=== PATIENT | female | born 1990 | race Caucasian/White ===

== ENCOUNTER 2020-11-24 09:51 | Inpatient (IN) ==
[2020-11-24] MEDS ORDERED: DEXAMETHASONE 4 MG/1 ML VIAL ONE ×2 (12:27→12:28)
[2020-11-24] MEDS ORDERED: ONDANSETRON 4 MG/2 ML VIAL ONE (12:27)
[2020-11-24] MEDS ORDERED: BUPIVACAINE MPF 0.25% 30 ML VIAL ONE ×2 (12:27→12:28)
[2020-11-24] MEDS ORDERED: propofoL 200 MG/20 ML VIAL IV ONE (12:27)
[2020-11-24] MEDS ORDERED: SUCCINYLCHOLINE 200 MG/10 ML VIAL ONE (12:27)
[2020-11-24] MEDS ORDERED: LIDOCAINE 2% 5 ML VIAL ONE ×2 (12:27→12:47)
[2020-11-24] MEDS ORDERED: ACETAMINOPHEN INJ 1,000 MG/100 ML VIAL IV ONE (12:34)
[2020-11-24] MEDS ORDERED: KETOROLAC 30 MG/1 ML VIAL ONE (12:34)
[2020-11-24] MEDS ORDERED: SEVOFLURANE 1 UNIT/15 MINUTE INH ONE (12:34)
[2020-11-24] MEDS ORDERED: CITRIC ACID/SODIUM CITRATE 30 ML UDCUP PO ONE ×2 (12:59→13:30)
[2020-11-24] MEDS ORDERED: ceFAZolin 2,000 MG/50 ML DUPLEX IV ONE (12:59)
[2020-11-24] MEDS ORDERED: FAMOTIDINE 20 MG/2 ML VIAL IV ONE (12:59)
[2020-11-24] MEDS ORDERED: LACTATED RINGERS 1,000 ML IV SCH ×2 (13:00→16:30)
[2020-11-24] MEDS ORDERED: OXYTOCIN/LR 30 UNIT/1,000 ML BAG IV ONE (13:01)
[2020-11-24] MEDS ORDERED: OXYTOCIN 10 UNIT/ML VIAL IM ONE (13:01)
[2020-11-24 13:15] LABS: Basophils % 0.2 % (0.0-0.8); Eosinophils # 0.1 10*3/uL (0.0-0.87); Eosinophils % 1.3 % (0.00-10.9); Hematocrit 31.7 VOL% (35.7-47.0); Hemoglobin 10.1 GM/DL (12.0-16.0); Immature Granulocytes % 0.4 %; Immature Granulocytes Absolute 0.04 #; Lymphocytes # 2.2 10*3/uL (1.4-4.0); Lymphocytes % 23.8 % (21.3-54.2); Mean Corpuscular HGB Conc 31.9 GM/DL (32-36); Mean Corpuscular Volume 91.9 FL (87-102); Mean Platelet Volume 9.1 FL (9.6-12.0); Monocytes % 9.8 % (1.7-12.7); Neutrophils % 64.5 % (38.7-73.9); Platelet Count 271 T/CUMM (130-400); Red Blood Count 3.45 MC/CUMM (3.8-5.5); Red Cell Distribution Width 12.5 % (9.3-17.3); White Blood Count 9.1 T/CUMM (4-12)
[2020-11-24 13:34] LABS: Albumin 2.6 G/DL (3.4-5.0); Bilirubin,Total 0.4 MG/DL (0.20-1.00); Calcium 8.5 MG/DL (8.5-10.1); Potassium 3.8 MMOL/L (3.5-5.1); Total Protein 7.3 G/DL (6.4-8.2)
[2020-11-24] MEDS ORDERED: miSOPROStoL 200 MCG TABLET ONE (14:48)
[2020-11-24] MEDS ORDERED: CARBOPROST TROMETHAMINE 250 MCG/ML AMP IM ONE (14:49)
[2020-11-24] MEDS ORDERED: METHYLERGONOVINE 0.2 MG/1 ML AMP ONE (14:49)
[2020-11-24] MEDS ORDERED: MIDAZOLAM 2 MG/2 ML VIAL ONE (15:35)
[2020-11-24] MEDS ORDERED: fentaNYL 100 MCG/2 ML VIAL ONE (15:35)
[2020-11-24] MEDS ORDERED: ROCURONIUM 50 MG/5 ML VIAL IV ONE (15:49)
[2020-11-24] MEDS ORDERED: GLYCOPYRROLATE 0.4 MG/2 ML VIAL ONE (15:56)
[2020-11-24] MEDS ORDERED: NEOSTIGMINE 10 MG/10 ML VIAL ONE (15:56)
[2020-11-24] MEDS ORDERED: PHENYLEPHRINE 1 MG/10 ML SYRINGE IV ONE (15:59)
[2020-11-24 16:15] LABS: Cord Venous Blood HCO3 22.5 MMOL/L; Cord Venous Blood PCO2 41.1 MMHG; Cord Venous Blood PO2 36.1 MMHG
[2020-11-24] MEDS ORDERED: MAGNESIUM HYDROXIDE SUSP 30 ML UDCUP PO PRN (16:26)
[2020-11-24] MEDS ORDERED: SIMETHICONE CHEW 80 MG TABLET PO PRN (16:26)
[2020-11-24] MEDS ORDERED: IBUPROFEN 800 MG TABLET PO PRN (16:26)
[2020-11-24] MEDS ORDERED: OXYTOCIN/LR 20 UNIT/1,000 ML BAG IV ONE (16:26)
[2020-11-24] MEDS ORDERED: RHO(D) IMMUNE GLOBULIN 300 MCG SYRINGE IM ONE (16:26)
[2020-11-24] MEDS ORDERED: ONDANSETRON 4 MG/2 ML VIAL IV PRN (16:26)
[2020-11-24] MEDS ORDERED: ACETAMINOPHEN 325 MG TABLET PO PRN (16:26)
[2020-11-24] MEDS ORDERED: HYDROmorphone 2 MG/1 ML VIAL IV PRN (18:36)
[2020-11-24] MEDS ORDERED: OXYTOCIN/LR 20 UNIT/1,000 ML BAG IV PRN (18:59)
[2020-11-24] MEDS: DOCUSATE SODIUM 100 MG CAPSULE PO SCH (21:48)
[2020-11-24] MEDS ORDERED: ACETAMINOPHEN 500 MG TABLET PO SCH (22:00)
[2020-11-24] MEDS ORDERED: KETOROLAC 30 MG/1 ML VIAL IM SCH (22:00)
[2020-11-24 22:30] LABS: Bilirubin,Urine Negative (Negative); Blood, Urine Negative (Negative); Glucose,Urine (UA) Negative (Negative); Ketones,Urine 80 mg/dL (Negative); Mucus,Urine Moderate /LPF (Occasional); Nitrite,Urine Negative (Negative); Protein,Urine 30 MG/DL; RBC,Urine 16 /HPF (0-4); Squamous Epithelial Cell,Urine Occasional /HPF (0-10); Urine Appearance CLEAR (Clear); Urine Color Yellow (Yellow); Urine Specific Gravity 1.024 (1.001-1.035)
[2020-11-24] MEDS: KETOROLAC 30 MG/1 ML VIAL IV SCH (22:55)
[2020-11-25] MEDS ORDERED: ACETAMINOPHEN 500 MG TABLET PO PRN (01:00)
[2020-11-25] MEDS: KETOROLAC 30 MG/1 ML VIAL IV SCH ×2 (04:49→10:21)
[2020-11-25 06:04] LABS: Basophils % 0.1 % (0.0-0.8); Eosinophils % 0.1 % (0.00-10.9); Hematocrit 23.4 VOL% (35.7-47.0); Immature Granulocytes % 0.5 %; Immature Granulocytes Absolute 0.08 #; Lymphocytes # 2.6 10*3/uL (1.4-4.0); Lymphocytes % 16.8 % (21.3-54.2); Mean Corpuscular HGB Conc 33.3 GM/DL (32-36); Mean Corpuscular Volume 90.7 FL (87-102); Mean Platelet Volume 9.2 FL (9.6-12.0); Monocytes % 10.7 % (1.7-12.7); Neutrophils % 71.8 % (38.7-73.9); Platelet Count 253 T/CUMM (130-400); Red Cell Distribution Width 12.2 % (9.3-17.3)
[2020-11-25 06:13] LABS: Hemoglobin 7.8 GM/DL (12.0-16.0); Red Blood Count 2.58 MC/CUMM (3.8-5.5)
[2020-11-25 06:14] LABS: White Blood Count 15.2 T/CUMM (4-12)
[2020-11-25] MEDS: FERROUS SULFATE 325 MG TABLET PO SCH ×3 (09:33→20:03)
[2020-11-25] MEDS: MULTIVITAMIN (PRENATAL) TABLET PO SCH (09:33)
[2020-11-25] MEDS: DOCUSATE SODIUM 100 MG CAPSULE PO SCH ×2 (09:33→20:03)
[2020-11-25] MEDS ORDERED: SODIUM CHLORIDE 0.9% 1,000 ML IV PRN (21:24)
[2020-11-26] MEDS: IBUPROFEN 800 MG TABLET PO PRN ×2 (01:39→08:28)
[2020-11-26] MEDS: MULTIVITAMIN (PRENATAL) TABLET PO SCH (08:27)
[2020-11-26] MEDS: FERROUS SULFATE 325 MG TABLET PO SCH (08:28)
[2020-11-26] MEDS: DOCUSATE SODIUM 100 MG CAPSULE PO SCH (08:28)
[2020-11-26 09:04] VITALS: BP 104/67
[2020-11-26 09:31] LABS: Hemoglobin 10.2 GM/DL (12.0-16.0)
== END 2020-11-26 12:45 | disposition home or self-care (01) | DRG 540 ==
LOC: N.OB 09:51 → N.LD 15:34 → N.OB 20:15
PROVIDERS: ADMIT Obstetrics & Gynecology; ATTEND Obstetrics & Gynecology
PROC: LDCSECT (ICD-10-PCS; 2020-11-24 15:00)